=== PATIENT | male | born 1995 | race Caucasian/White ===

== ENCOUNTER 2018-06-16 02:17 | Emergency (ER) | payer OTHER ==
--- NOTE | 2018-06-16 02:48 | EDPHY ---
H & P Time Seen by Provider: 06/16/18 02:48 HPI/ROS: HPI CHIEF COMPLAINT: Head laceration, scalp hematoma HISTORY OF PRESENT ILLNESS: Patient is a 22-year-old male, arrives to the emergency room by private vehicle with his friend, approximately an hour and half ago the patient was going down a flight of stairs in jumped up and hit a middle aged door frame on the top of his head sustaining a head laceration hematoma. No LOC does complain of pain at the vertex. He states he hit it rather hard he did have alcohol earlier tonight. No drugs. Past Medical History: Denies medical history Past Surgical History: Denies surgical history Social History: [employer] student Family History: Noncontributory ROS REVIEW OF SYSTEMS: 10 Systems were reviewed and negative with the exception of the elements mentioned in the history of present illness. Exam Constitutional triage nursing summary reviewed, vital signs reviewed, awake/ alert. Eyes normal conjunctivae and sclera, EOMI, PERRLA. HENT head/neck atraumatic however vertex of his head there is a horizontal 5 cm laceration and scalp hematoma, mild tender palpation, otherwise atraumatic head and neck exam moist mucus membranes, no epistaxis, neck supple/ no meningismus, no raccoon eyes. Respiratory clear to auscultation bilaterally, normal breath sounds, no respiratory distress, no wheezing. Cardiovascular rate normal, regular rhythm, no murmur, no edema, distal pulses normal. Gastrointestinal soft, non-tender, no rebound, no guarding, normal bowel sounds, no distension, no pulsatile mass. Genitourinary no CVA tenderness. Musculoskeletal no midline vertebral tenderness, full range of motion, no calf swelling, no tenderness of extremities, no meningismus, good pulses, neurovascularly intact. Skin pink, warm, & dry, no rash, skin atraumatic. Neurologic awake, alert and oriented x 3, AAOx3, moves all 4 extremities equally, motor intact, sensory intact, CN II-XII intact, normal cerebellar, normal vision, normal speech. Psychiatric normal mood/affect. Heme/Lymph/Immune no lymphadenopathy. Differential Diagnosis: Includes but is not limited to in a particular order acute alcohol intoxication, head laceration, scalp hematoma, subdural, traumatic subarachnoid, epidural Medical Decision Making: Plan for this patient given that he hit the edge of a door frame metal hard, had alcohol, has a headache, plan for CT scan head without contrast rule out intracranial bleed, as well as clean his wound repair his laceration. Re-evaluation: CT scan head without contrast: This shows no acute intracranial hemorrhage midline shift or fracture there is a punctate hyperdense focus in the right frontal scalp. Could possibly be a foreign body. Additionally on the CT scan there is an intra-axial cystic lesion left frontal lobe no significant surrounding vasogenic edema or midline shift small nodular component posterior cannot be excluded consider contrast-enhanced MRI Updated patient about CT results. No acute bleed. However there is an intra or axial cystic lesion measuring 1.9 x 3 cm x 2.8 cm No significant vasogenic edema. Patient has not had any previous imaging He has never been told he had a cyst/ tumor in his brain. After long discussion with the patient he has agreed for MRI tonight. IV will be established as the brain MRI needs to be MRI with and without contrast. Patient updated [id number]: Patient back from MRI. Plan for closing his laceration Patient verbally concents for closure. Laceration Repair Procedure: Verbal Consent was obtained, Under sterile conditions, The patient had lidocaine with epinephrine used approximately 8ccs to local anesthetize the 5CM horizontal scalp Laceration. The wound was copiously irrigated with sterile fluid, the wound was explored for foreign bodies there were none visualized, the wound was explored with a sterile glove to the base. There are no deep structures involved, including no arterial injury. EIGHT interrupted Sutures were placed in this patient's laceration. He had good close approximation of the wound edges. He Tolerated this well. MRI of the brain obtained faxed me by direct Radiology at 6:22 a.m.. This shows a well-defined intra axial left frontal lobe cystic mass as described with small solid enhancing component noted posteriorly there is no mass effect her suspicious white matter demand associations CT parents is relatively nonaggressive however the possibly a low-grade mixed glioma is difficult to fully exclude specially given presence of a small enhancing solid nodule along the posterior aspect is lesion. 0648: Consult Dr. Jiménez, will consult and see. Recommends admission to hospalist service. Dr. Sharma Consulted. Source: Patient Constitutional: Initial Vital Signs Temperature (C) 36.6 C 06/16/18 02:20 Heart Rate 84 06/16/18 02:20 Respiratory Rate 18 06/16/18 02:20 Blood Pressure 121/87 H 06/16/18 02:20 O2 Sat (%) 97 06/16/18 02:20 O2 Delivery Mode Room Air Allergies/Adverse Reactions: tree nut [Nuts] Allergy (Verified 06/16/18 02:49) Home Medications: Medication Instructions Recorded NK [No Known Home Meds] 06/16/18 Medical Decision Making - Data Points Laboratory Results: Laboratory Results 06/16/18 04:10 06/16/18 04:10 Departure - Departure Disposition: [facility] Acute Clinical Impression: Laceration, Hematoma, Brain tumor Condition: Good
[2018-06-16 04:21] LABS: PLATELET COUNT 312 10^3/uL (150-400)
[2018-06-16] MEDS ORDERED: GADOBUTROL 10 ML VIAL IVP ONE (05:20)
[2018-06-16] MEDS ORDERED: ONDANSETRON DISINTEGRATING 4 MG TAB PO PRN (06:40)
[2018-06-16] MEDS ORDERED: ACETAMINOPHEN 325 MG TAB PO PRN (06:40)
[2018-06-16] MEDS ORDERED: ONDANSETRON 4 MG/2 ML VIAL IVP PRN (06:40)
[2018-06-16] MEDS ORDERED: IOPAMIDOL (ISOVUE-300) 100 ML BTL ONE (06:46)
--- NOTE | 2018-06-16 07:27 | PDGENHP ---
History and Physical - Chief Complaint Head laceration - History of Present Illness 22 yo M w/ no PMHx presents after hitting his head. The patient hit his head on a door frame and suffered a head laceration. This was repaired without issue in the ED. He underwent a CT scan, however, that incidentally demonstrated a cystic brain lesion. This was further evaluated with an MRI, which revealed a mostly benign appearance but there was a small, complex aspect. The ED discussed with neurosurgery who requested admission and CT scans of the chest, abdomen, and pelvis. During my evaluation the patient denies PMHx or PSHx. He has no prior history of malignancy or knowledge of this head lesion. He also denies family hx of any malignancies. Case discussed with ED physician Dr. Trivedi; records reviewed and summarized above. History Information - Allergies/Home Medication List Allergies/Adverse Reactions: tree nut [Nuts] Allergy (Verified 06/16/18 02:49) Home Medications: NK [No Known Home Meds] 06/16/18 [Last Taken Unknown] I have personally reviewed and updated: family history, medical history - Past Medical History no pertinent PMH - Surgical History Reports: no pertinent surgical hx - Family History Negative for: cancer - Social History Smoking Status: Never smoked Review of Systems Review of Systems: ROS: 10pt was reviewed & negative except for what was stated in HPI & below Physical Exam Physical Exam: Temp Pulse Resp BP Pulse Ox 36.7 C 92 18 143/90 H 96 06/16/18 04:00 06/16/18 04:00 06/16/18 04:00 06/16/18 04:00 06/16/18 04:00 Constitutional: no apparent distress, not in pain Eyes: PERRL, EOMI Ears, Nose, Mouth, Throat: moist mucous membranes, other (Scalp laceration s/p repair) Cardiovascular: regular rate and rhythym, no murmur, rub, or gallop Respiratory: no respiratory distress, clear to auscultation Gastrointestinal: normoactive bowel sounds, soft, non-tender abdomen Skin: warm, other (Scalp laceration s/p repair) Musculoskeletal: full muscle strength, no muscle tenderness Neurologic: AAOx3, CN II-XII Intact, No weakness, No numbness Psychiatric: interacting appropriately, not anxious Lab Data & Imaging Review 06/16/18 04:10 06/16/18 04:10 WBC 6.77 10^3/uL (3.80-9.50) 06/16/18 04:10 RBC 5.07 10^6/uL (4.40-6.38) 06/16/18 04:10 Hgb 15.9 g/dL (13.7-17.5) 06/16/18 04:10 Hct 46.4 % (40.0-51.0) 06/16/18 04:10 MCV 91.5 fL (81.5-99.8) 06/16/18 04:10 MCH 31.4 pg (27.9-34.1) 06/16/18 04:10 MCHC 34.3 g/dL (32.4-36.7) 06/16/18 04:10 RDW 11.9 % (11.5-15.2) 06/16/18 04:10 Plt Count 312 10^3/uL (150-400) 06/16/18 04:10 MPV 9.3 fL (8.7-11.7) 06/16/18 04:10 Neut % (Auto) 61.1 % (39.3-74.2) 06/16/18 04:10 Lymph % (Auto) 28.5 % (15.0-45.0) 06/16/18 04:10 Heard % (Auto) 7.5 % (4.5-13.0) 06/16/18 04:10 Eos % (Auto) 2.1 % (0.6-7.6) 06/16/18 04:10 Baso % (Auto) 0.7 % (0.3-1.7) 06/16/18 04:10 Nucleat RBC Rel Count 0.0 % (0.0-0.2) 06/16/18 04:10 Absolute Neuts (auto) 4.13 10^3/uL (1.70-6.50) 06/16/18 04:10 Absolute Lymphs (auto) 1.93 10^3/uL (1.00-3.00) 06/16/18 04:10 Absolute Monos (auto) 0.51 10^3/uL (0.30-0.80) 06/16/18 04:10 Absolute Eos (auto) 0.14 10^3/uL (0.03-0.40) 06/16/18 04:10 Absolute Basos (auto) 0.05 10^3/uL (0.02-0.10) 06/16/18 04:10 Absolute Nucleated RBC 0.00 10^3/uL (0-0.01) 06/16/18 04:10 Immature Gran % 0.1 % (0.0-1.1) 06/16/18 04:10 Immature Gran # 0.01 10^3/uL (0.00-0.10) 06/16/18 04:10 Sodium 138 mEq/L (135-145) 06/16/18 04:10 Potassium 4.1 mEq/L (3.5-5.2) 06/16/18 04:10 Chloride 104 mEq/L (97-110) 06/16/18 04:10 Carbon Dioxide 22 mEq/l (22-31) 06/16/18 04:10 Anion Gap 12 mEq/L (6-14) 06/16/18 04:10 BUN 9 mg/dL (7-23) 06/16/18 04:10 Creatinine 0.7 mg/dL (0.7-1.3) 06/16/18 04:10 Estimated GFR > 60 06/16/18 04:10 Glucose 100 mg/dL (70-100) 06/16/18 04:10 Calcium 9.7 mg/dL (8.5-10.4) 06/16/18 04:10 Assessment & Plan Assessment: 22 yo M admitted with incidentally found brain lesion. Plan: 1. Cystic mass - Well-defined intra-axial L frontal lobe cystic mass incidentally found on imaging. The patient denies all neurologic symptoms. There is a small, solid, enhancing component noted posteriorly. - Neurosurgery consulted in the ED - CT Chest/Abdomen/Pelvis ordered to rule out other primary Diet - NPO pending neurosurgical evaluation Code - Full Ppx - Low risk, ambulate TID Dispo - Admit under observation status
[2018-06-16 09:02] VITALS: BP 133/85
--- NOTE | 2018-06-16 09:38 | HOSPPROG ---
Hospitalist Progress Note Assessment/Plan: 22 yo M w/ no PMHx presents after hitting his head. The patient hit his head on a door frame and suffered a head laceration. This was repaired without issue in the ED. He underwent a CT scan, however, that incidentally demonstrated a cystic brain lesion. This was further evaluated with an MRI, which revealed a mostly benign appearance but there was a small, complex aspect. He was seen and evaluated by neurosurgery and will f/u with them in the OP setting. *head laceration -will need to return to ER for suture removal in a week -ice, prn ibuprofen and tylenol *small lesion - left frontal lobe complex cyst -reviewed his care w Dr Kaplan- he will present to tumor board on Tuesday -patient is to f/u with him on Tuesday -reviewed his CT of chest, abd, pelvis-all stable *plan: dc today w close f/u with Dr Kaplan Subjective: [place] is feeling fine, but is very tired. Objective: Vital Signs Temp Pulse Resp BP Pulse Ox 36.9 C 103 H 16 133/85 H 95 06/16/18 08:00 06/16/18 08:00 06/16/18 08:00 06/16/18 08:00 06/16/18 08:00 - Physical Exam Constitutional: no apparent distress, appears nourished Eyes: PERRL Ears, Nose, Mouth, Throat: hearing normal Cardiovascular: regular rate and rhythym Respiratory: no respiratory distress Skin: warm, other (scalp laceration on top of his head w tony intact) Musculoskeletal: full muscle strength Neurologic: AAOx3 Psychiatric: interacting appropriately ICD10 Worksheet Patient Problems: Problems Problem Status Onset Brain tumor Acute Hematoma Acute Laceration Acute
--- NOTE | 2018-06-16 11:19 | GDS ---
[f rep st] DISCHARGE SUMMARY DISCHARGE DIAGNOSES: 1. Head laceration. 2. 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 CONSULTATION: Dr. Azael Jordan. 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 He hit his head on a door frame and suffered a head laceration on the top of his head. This was staple d and taken care of in the emergency room. He underwent a CT scan that incidentally demonstrated a c ystic brain lesion. This was further evaluated with an MRI, which revealed mostly benign appearance, but small complex aspect. Subsequently, he had imaging of his chest, abdomen, and pelvis that did n ot show any type of lesions. They were noted to be stable. He was seen and evaluated by Dr. Jordan. The plan is for Dr. Jordan to present his case to the Tumor Board on Tuesday. The patient will fol low up with him in the outpatient setting. HOSPITAL COURSE: 1. Head laceration, stable. He will need to return to the ER for staple removal. 2. Left frontal complex cyst lesion. This will be reviewed at Tumor Board on Tuesday. DISCHARGE CONDITION: Stable. Blood pressure is 133/85, heart rate of 103, respiratory rate of 16, O 2 sats on room air 95%, temperature is 36.9 Celsius. MEDICATIONS AT DISCHARGE: Please see the EMR. DISCHARGE INSTRUCTIONS: 1. Ramírez to be removed in 7 days. 2. Return to the ER if he has any worsening symptoms, questions, or concerns. 3. No alcohol. 4. Use Tylenol alternating with ibuprofen for pain. 5. Call Dr. Jordan's office on Tuesday for followup. 6. Take it easy for the next several days. No hard workouts. /[id number]/MODL
--- NOTE | 2018-06-16 16:00 | GCON ---
[f rep st] CONSULTATION NEUROSURGICAL CONSULTATION DATE OF CONSULTATION: 06/16/2018 CHIEF COMPLAINT: Fall with head laceration. HISTORY OF PRESENT ILLNESS: The patient is a pleasant 22-year-old male who presents to the [facility] Emergency Department after striking his head. The patient states that he was running down stairs and struck the upper part of his head on a door frame and suffered a laceration of the head. The patient was taken to the emergency room by a friend where his head laceration was treated and stapled closed. He did undergo a CT head without contrast which demonstrated an incidental finding of a cystic brain lesion. This was further evaluated with an MRI of the brain which revealed mostly benign appearance, with a small complex aspect to it. The patient subsequently underwent also a CT of the chest and abdomen which were negative. The patient denies any neurologic changes and had been feeling well prior to today. He specifically denies any fevers, chills, or sweats. He has not traveled out of the country recently. He is, otherwise, healthy. He denies any knowledge of previous lesion in his head. Does report occasional random neck soreness, but currently is not having any. ALLERGIES: Tree nuts and amoxicillin which causes nausea. 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 He lives with his roommate. He drinks alcohol socially and on a fairly regular basis. He denies any use of tobacco or marijuana or drugs. FAMILY HISTORY: Notable for breast cancer in his maternal grandmother and ovarian cancer in his paternal grandmother. PAST MEDICAL HISTORY: Noncontributory. CURRENT MEDICATIONS: None. PAST SURGICAL HISTORY: None. REVIEW OF SYSTEMS: Negative other than mentioned in the HPI. DATA REVIEW: LAB STUDIES: White blood cell count 6.7, hemoglobin 15.9, hematocrit 46.4, platelets are 312. Sodium is 138, potassium 4.1, chloride 104 , CO2 is 22, BUN 9, creatinine 0.7. 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 No intracranial hemorrhage or epidural/subdural hematoma is noted. No skull fracture. 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 There is some extension into the left lateral ventricle as well without hydrocephalus. No additional enhancing lesions. No hydrocephalus. No midline shift. No herniation. No epidural or subdural hematoma. CT of the chest and abdomen are normal. PHYSICAL EXAM: GENERAL: Pleasant, healthy-appearing 22-year-old male in no apparent distress. HEAD, EARS, NOSE, AND THROAT: The patient has a stapled laceration of the top of his head. Otherwise, he has no neck pain, tenderness. EXTREMITIES: Within normal limits. ABDOMEN: Soft, nontender, nondistended. NEUROLOGIC: Patient is awake, alert, and oriented x4. Cranial nerves 2-12 are intact to gross examination. Speech is fluent. Tongue is midline. Spinal accessory muscles are intact. There is no facial droop and no pronator drift. He has equal and symmetric strength of the bilateral upper and lower extremities with 2/4 reflexes at bilateral biceps, brachialis, and patellar tendons with no Brandon's and no clonus. IMPRESSION: This is a 22-year-old male who suffered a scalp laceration while running down some stairs early this morning. He has an incidental finding found on CT scan of the head demonstrating an intra-axial neoplasm with partially calcified mural nodule. PLAN: All above issues were discussed with the patient in detail. He was seen by Dr. Jordan in the emergency department today. The plan at this time is for the patient to be presented at the next Tumor Board. Further treatment recommendations will be offered to the patient upon completion of that meeting. The patient will follow up with Dr. Jordan in clinic as an outpatient for further treatment options. The patient was encouraged to contact our office with any questions or concerns prior to his next appointment. NEUROSURGERY ATTENDING NOTE I reviewed the images with the patient and his family in the ER and reviewed the different treatment options, including close monitoring with serial images, needle biopsy, or open biopsy and resection. I would favor resection given his age, but he has finals fo college in the next 5 days and his family is arriving from [place]. I told them we would speak about the results of Tumor Board once he was presented and then go from there. He will be discharged home from the ER today and I do not feel he requires AED. All questions answered and the plan was communicated with the ER directly, as well as the Medicine service who was going to admit the patient. /[id number]/MODL MTDD
--- NOTE | 2018-06-16 17:10 | ASDISCHSUM ---
Discharge Information Plan Status:Home with No Needs Medically Cleared to Leave: Discharge Date: CM D/C Disposition:Home, Routine, Self-Care ADT D/C Disposition: Projected Discharge Date: Transportation at D/C:Family Discharge Delay Reason: Follow-Up Date: Discharge Slot: Final Diagnosis: Placement Information Patient Contact Information Contact Name:EZIO Relationship:Sister Address: Work Phone: City: [facility] Phone: State/Zip Code: Email: Financial Information Financial Class:HMO and PPO Plans Primary Plan Desc:[employer] Primary Plan Number:[id number] Secondary Plan Desc: Secondary Plan Number: Assessment Information Intervention Information Intervention Type:Emotional Support Date of Service:06/16/2018 05:04 PM Patient Type:Observation Staff Member:MAREN Maldonado Sharon Hours:0.25 Discipline:Skin Carver Severity: Comment:Spoke w/pt re: the results of his Head CT and MRI showing a brain tumor. Pt states "I'm doing okay. It's just a lot of information and I'm really tired." CM provided empathetic listening and emotional support. 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 Pt's sister and FEMI (and niece and nephew) are at bedside and providing pt with positive family support. Pt's parents are flying into [place] tomorrow or Tuesday. Pt has a followup appt dale/Nikki on Tuesday. Pt states he will also followup with Gerardo for care coordination assistance and any additional emotional support he might need. Pt calm, pleasant and appreciati ve of assistance.
== END 2018-06-16 10:42 | disposition still patient (30) ==
LOC: UNDOADMOB 06:39
PROC: 0HQ0XZZ Repair Scalp Skin, External Approach (ICD-10-PCS; principal; 2018-06-16)
DX: S01.01XA Laceration without foreign body of scalp, initial encounter (principal); S00.03XA Contusion of scalp, initial encounter; G93.9 Disorder of brain, unspecified; W22.8XXA Striking against or struck by other objects, initial encounter; Y93.39 Activity, other involving climbing, rappelling and jumping off
CPT/HCPCS: A9585; Q9967